=== PATIENT | female | born 1960 | race African-American/Black ===

== ENCOUNTER 2018-03-10 12:16 | Emergency (ER) | payer OTHER ==
[~2018-03-10] VITALS: Ht 167.6 cm; Wt 87.5 kg
[2018-03-10 12:16] VITALS: BP 128/85
[~2018-03-10 12:16] MED LIST: DEXL60CA3 PO; GABA800T2 PO; LAMO100T2 PO; PRAV40TA3 PO; SPIR25TA PO; SUCR1TAB31 PO; TOPI25TA PO
[2018-03-10] MEDS ORDERED: KETOROLAC TROMETHAMINE INJ 30 MG/ML VIAL ONE (13:28)
[2018-03-10] MEDS: KETOROLAC TROMETHAMINE INJ 30 MG/ML VIAL IM ONE (13:30)
== END 2018-03-10 15:11 | disposition home or self-care (01) ==
LOC: ER 13:13
DX: M51.36 Other intervertebral disc degeneration, lumbar region (principal); M75.32 Calcific tendinitis of left shoulder; G57.01 Lesion of sciatic nerve, right lower limb; I10 Essential (primary) hypertension; J44.9 Chronic obstructive pulmonary disease, unspecified; F41.9 Anxiety disorder, unspecified; F31.9 Bipolar disorder, unspecified; F17.200 Nicotine dependence, unspecified, uncomplicated; Z90.49 Acquired absence of other specified parts of digestive tract; Z90.710 Acquired absence of both cervix and uterus
CPT/HCPCS: 72110-TC; 73030-TC; A4606; J1885; Z7610

== ENCOUNTER 2018-05-25 09:59 | Emergency (ER) | payer OTHER ==
[~2018-05-25] VITALS: Ht 167.6 cm; Wt 88.9 kg
[2018-05-25 10:03] VITALS: BP 121/81
== END 2018-05-25 10:16 | disposition home or self-care (01) ==
LOC: ER 10:00
DX: S63.641A Sprain of metacarpophalangeal joint of right thumb, initial encounter (principal); F31.9 Bipolar disorder, unspecified; F41.9 Anxiety disorder, unspecified; J44.9 Chronic obstructive pulmonary disease, unspecified; Z90.89 Acquired absence of other organs; Z90.710 Acquired absence of both cervix and uterus; I10 Essential (primary) hypertension; F17.200 Nicotine dependence, unspecified, uncomplicated; X58.XXXA Exposure to other specified factors, initial encounter; Y93.89 Activity, other specified; Y92.89 Other specified places as the place of occurrence of the external cause; Y99.8 Other external cause status
CPT/HCPCS: A4606; Z7610

== ENCOUNTER 2018-06-22 08:15 | Emergency (ER) | payer OTHER ==
[~2018-06-22] VITALS: Ht 167.6 cm; Wt 88.9 kg
[2018-06-22 08:26] VITALS: BP 117/74
[2018-06-22] MEDS ORDERED: TRAMADOL HCL 50 MG TABLET ONE (08:58)
[2018-06-22] MEDS ORDERED: TRAMADOL HCL 50 MG TABLET PO ONE (09:00)
== END 2018-06-22 09:34 | disposition home or self-care (01) ==
LOC: ER 08:16
DX: M79.644 Pain in right finger(s) (principal); I10 Essential (primary) hypertension; J44.9 Chronic obstructive pulmonary disease, unspecified; M19.90 Unspecified osteoarthritis, unspecified site; F17.200 Nicotine dependence, unspecified, uncomplicated; Z90.49 Acquired absence of other specified parts of digestive tract; Z79.899 Other long term (current) drug therapy
CPT/HCPCS: 73120-TC; A4606; Z7610

== ENCOUNTER 2019-01-20 12:04 | Emergency (ER) | payer OTHER ==
[~2019-01-20] VITALS: Ht 167.6 cm; Wt 84.8 kg
[2019-01-20 12:04] VITALS: BP 114/74
[~2019-01-20 12:04] MED LIST changes: +GABA800T11 PO; -GABA800T2 PO
== END 2019-01-20 12:46 | disposition home or self-care (01) ==
LOC: ER 12:08
DX: H93.92 Unspecified disorder of left ear (principal); I10 Essential (primary) hypertension; E78.00 Pure hypercholesterolemia, unspecified; J44.9 Chronic obstructive pulmonary disease, unspecified; M19.90 Unspecified osteoarthritis, unspecified site; F17.200 Nicotine dependence, unspecified, uncomplicated; Z98.890 Other specified postprocedural states; Z79.899 Other long term (current) drug therapy
CPT/HCPCS: 99283; A4606

== ENCOUNTER 2019-09-01 09:39 | Emergency (ER) | payer OTHER ==
[~2019-09-01] VITALS: Ht 167.6 cm; Wt 81.6 kg
[2019-09-01 10:15] VITALS: BP 170/90
[2019-09-01] MEDS ORDERED: IBUPROFEN 600 MG TABLET PO ONE ×2 (10:30→11:07)
[2019-09-01 10:53] LABS: BASOPHILS # (AUTO) 0.2 /CMM (0.0-0.2); BASOPHILS % (AUTO) 2.3 % (0.0-2.0); HEMATOCRIT 47 % (33-45); HEMOGLOBIN 15.7 g/dL (11.5-14.8); LYMPHOCYTES # (AUTO) 3.1 /CMM (0.8-4.8); LYMPHOCYTES % (AUTO) 32.6 % (20.0-44.0); MEAN CORPUSCULAR HGB CONC 34 g/dl (31.0-36.0); MEAN CORPUSCULAR VOLUME 98 fL (82-100); MONOCYTES # (AUTO) 0.5 /CMM (0.1-1.30); MONOCYTES % (AUTO) 5.7 % (2.0-12.0); NEUTROPHILS # (AUTO) 5.5 /CMM (1.8-8.9); NEUTROPHILS % (AUTO) 58.4 % (43.0-81.0); PLATELET COUNT (AUTO) 192 /CMM (150-450); RED BLOOD CELL COUNT(AUTO) 4.77 MIL/uL (4.0-5.2); WHITE BLOOD COUNT (AUTO) 9.4 K/uL (4.3-11.0)
[2019-09-01 11:00] LABS: CALCIUM, SERUM 9.1 mg/dL (8.5-10.1); CREATININE 0.8 mg/dL (0.6-1.3); POTASSIUM 4.2 mmol/L (3.5-5.1)
== END 2019-09-01 11:41 | disposition home or self-care (01) ==
LOC: ER 09:39
DX: J06.9 Acute upper respiratory infection, unspecified (principal); J44.9 Chronic obstructive pulmonary disease, unspecified; I10 Essential (primary) hypertension; F17.200 Nicotine dependence, unspecified, uncomplicated; Z98.890 Other specified postprocedural states; Z79.899 Other long term (current) drug therapy
CPT/HCPCS: 36415; 71046; 80048-TC; 85025-TC

== ENCOUNTER 2019-11-28 13:36 | Emergency (ER) | payer OTHER ==
[~2019-11-28] VITALS: Ht 167.6 cm; Wt 82.6 kg
[2019-11-28] MEDS ORDERED: HYDROCODONE/APAP 10/325MG 1 EA TABLET ONE (14:25)
[2019-11-28] MEDS ORDERED: HYDROCODONE/APAP 10/325MG 1 EA TABLET PO ONE (14:30)
--- NOTE | 2019-11-28 14:30 | NUR ---
PATIENT CAME IN TO THE ER C/O PAIN TO R HAND S/P INJURY 3 YEARS AGO. NO RELIEF FROM OTC MEDICATION. ON ROOM AIR, BREATHING EVENLY AND UNLABORED. KEPT COMFORTABLE, WILL CONTINUE TO MONITOR ACCORDINGLY.
--- NOTE | 2019-11-28 15:47 | NUR ---
CALLED [facility], REQUESTED RE-READ
[2019-11-28 15:58] VITALS: BP 135/81
--- NOTE | 2019-11-28 15:58 | NUR ---
Patient discharged to home in stable condition. Written and verbal after care instructions given. Patient verbalizes understanding of instruction.
== END 2019-11-28 15:58 | disposition home or self-care (01) ==
LOC: ER 13:54
DX: M79.641 Pain in right hand (principal); I10 Essential (primary) hypertension; J44.9 Chronic obstructive pulmonary disease, unspecified; M19.90 Unspecified osteoarthritis, unspecified site; F17.200 Nicotine dependence, unspecified, uncomplicated; Z98.890 Other specified postprocedural states; Z79.899 Other long term (current) drug therapy
CPT/HCPCS: 73130-TC

== ENCOUNTER 2020-04-14 18:56 | Emergency (ER) | payer OTHER ==
[~2020-04-14] VITALS: Ht 167.6 cm; Wt 81.6 kg
[2020-04-14 19:30] VITALS: BP 127/67
[2020-04-14] MEDS ORDERED: KETOROLAC TROMETHAMINE INJ 30 MG/ML VIAL ONE (20:02)
[2020-04-14] MEDS: KETOROLAC TROMETHAMINE INJ 60 MG/2 ML VIAL IM ONE (20:07)
[2020-04-14 20:30] LABS: APPEARANCE,URINE Clear (CLEAR); BILIRUBIN,URINE Negative (NEGATIVE); BLOOD, URINE Trace-intact Ery/uL (NEGATIVE); COLOR,URINE Yellow (YELLOW); KETONES,URINE Trace (NEGATIVE); LEUKOCYTE ESTERASE ,URINE Negative (NEGATIVE); NITRITE, URINE Negative (NEGATIVE); PH,URINE 5.5 (5.0-8.0); PROTEIN,URINE Negative (NEGATIVE); UGLUCOSE Negative (NEGATIVE); UROBILINOGEN,URINE 0.2 EU/dL (0.2)
[2020-04-14 20:48] LABS: SQUAMOUS EPITHELIAL CELL,UR Many /HPF (None Seen)
[2020-04-14 20:49] LABS: BACTERIA,URINE Few /HPF (None Seen); WBC,URINE 0-2 /HPF (0-3)
== END 2020-04-14 21:18 | disposition home or self-care (01) ==
LOC: ER 18:58
DX: R10.9 Unspecified abdominal pain (principal); G89.29 Other chronic pain; M54.5 Low back pain; I10 Essential (primary) hypertension; J44.9 Chronic obstructive pulmonary disease, unspecified; Z98.890 Other specified postprocedural states; Z79.899 Other long term (current) drug therapy
CPT/HCPCS: 72100; 81001; 96372; 99284; J1885; 81000-TC

== ENCOUNTER 2020-06-07 10:21 | Emergency (ER) | payer OTHER ==
[~2020-06-07] VITALS: Ht 167.6 cm; Wt 81.6 kg
[2020-06-07 10:28] VITALS: BP 140/77
--- NOTE | 2020-06-07 11:09 | NUR ---
Patient discharged to home in stable condition. Written and verbal after care instructions given. Patient verbalizes understanding of instruction.
== END 2020-06-07 11:08 | disposition home or self-care (01) ==
LOC: ER 10:21
DX: M54.5 Low back pain (principal); I10 Essential (primary) hypertension; E78.5 Hyperlipidemia, unspecified; J44.9 Chronic obstructive pulmonary disease, unspecified; M19.90 Unspecified osteoarthritis, unspecified site; F17.200 Nicotine dependence, unspecified, uncomplicated; Z98.890 Other specified postprocedural states; Z79.899 Other long term (current) drug therapy

== ENCOUNTER 2020-12-07 08:38 | Emergency (ER) | payer OTHER ==
[~2020-12-07] VITALS: Ht 167.6 cm; Wt 81.6 kg
[2020-12-07 08:47] VITALS: BP 158/89
== END 2020-12-07 09:20 | disposition home or self-care (01) ==
LOC: ER 08:39
DX: G56.01 Carpal tunnel syndrome, right upper limb (principal); I10 Essential (primary) hypertension; E78.5 Hyperlipidemia, unspecified; J44.9 Chronic obstructive pulmonary disease, unspecified; Z98.890 Other specified postprocedural states; Z79.899 Other long term (current) drug therapy

== ENCOUNTER 2021-03-26 11:41 | Emergency (ER) | payer OTHER ==
[~2021-03-26] VITALS: Ht 167.6 cm; Wt 81.6 kg
--- NOTE | 2021-03-26 11:54 | NUR ---
BIBS FROM HOME TO ER BED 12. AAOZ4. NOT IN RESP DISTRESS. AMBULATORY. CAME IN FOR L ARM TINGLING AND L LEG CRAMPING FOR THE PAST 5 DAYS. PT DENIES ANY TRAUMA. ROM ARE ALL INTACT. WAST AT THE BEDSIDE FOR EVAL. ORDERS RECEIVED.
[2021-03-26 12:20] LABS: BASOPHILS # (AUTO) 0.1 /CMM (0.0-0.2); BASOPHILS % (AUTO) 0.6 % (0.0-2.0); EOSINOPHILS % (AUTO) 0.8 % (0.0-6.0); HEMATOCRIT 48 % (33-45); LYMPHOCYTES # (AUTO) 3.9 /CMM (0.8-4.8); LYMPHOCYTES % (AUTO) 34.8 % (20.0-44.0); MEAN CORPUSCULAR HGB CONC 33 g/dl (31.0-36.0); MEAN CORPUSCULAR VOLUME 96 fL (82-100); MONOCYTES # (AUTO) 0.7 /CMM (0.1-1.30); MONOCYTES % (AUTO) 6.6 % (2.0-12.0); NEUTROPHILS # (AUTO) 6.4 /CMM (1.8-8.9); NEUTROPHILS % (AUTO) 57.2 % (43.0-81.0); PLATELET COUNT (AUTO) 211 /CMM (150-450); RED BLOOD CELL COUNT(AUTO) 4.98 MIL/uL (4.0-5.2); WHITE BLOOD COUNT (AUTO) 11.2 K/uL (4.3-11.0)
--- NOTE | 2021-03-26 12:23 | NUR ---
pt to ct
[2021-03-26 12:26] LABS: CREATININE 0.8 mg/dL (0.6-1.3); POTASSIUM 4.1 mmol/L (3.5-5.1)
[2021-03-26 12:31] LABS: CALCIUM, SERUM 9.3 mg/dL (8.5-10.1)
[2021-03-26] MEDS ORDERED: MAGN400T8 PO (13:15)
[2021-03-26] MEDS ORDERED: METH-647 GT (13:15)
[2021-03-26 13:31] VITALS: BP 123/78
--- NOTE | 2021-03-26 13:31 | NUR ---
Patient discharged to home in stable condition. Written and verbal after care instructions given. Patient verbalizes understanding of instruction. Pt ambulatory with a steady gait
== END 2021-03-26 13:33 | disposition home or self-care (01) ==
LOC: ER 11:44
DX: R25.2 Cramp and spasm (principal); E83.42 Hypomagnesemia; M54.12 Radiculopathy, cervical region; I10 Essential (primary) hypertension; E78.5 Hyperlipidemia, unspecified; J44.9 Chronic obstructive pulmonary disease, unspecified; M19.90 Unspecified osteoarthritis, unspecified site; F17.200 Nicotine dependence, unspecified, uncomplicated; Z98.890 Other specified postprocedural states; Z79.899 Other long term (current) drug therapy
CPT/HCPCS: 36415; 72125-TC; 80048-TC; 83735-TC; 85025-TC

== ENCOUNTER 2021-05-01 17:25 | Emergency (ER) | payer OTHER ==
[~2021-05-01] VITALS: Ht 167.6 cm; Wt 81.6 kg
[~2021-05-01 17:25] MED LIST changes: +MAGN400T8 PO; +METH-647 GT
[2021-05-01] MEDS ORDERED: ONDANSETRON HCL/PF 4 MG/2 ML VIAL ONE (17:46)
[2021-05-01] MEDS ORDERED: MORPHINE SULFATE INJ 4 MG/ML DISP.SYRIN ONE (17:46)
[2021-05-01] MEDS ORDERED: METF-440 PO (17:48)
[2021-05-01] MEDS ORDERED: CETI10TA14 PO (17:48)
[2021-05-01] MEDS ORDERED: VENL75CA62 PO (17:48)
[2021-05-01 17:51] LABS: BILIRUBIN,URINE Negative (NEGATIVE); COLOR,URINE YELLOW (YELLOW); LEUKOCYTE ESTERASE ,URINE Negative (NEGATIVE); NITRITE, URINE Negative (NEGATIVE); PH,URINE 5.5 (5.0-8.0); PROTEIN,URINE Negative (NEGATIVE); UGLUCOSE Negative (NEGATIVE); UROBILINOGEN,URINE 0.2 EU/dL (0.2)
[2021-05-01 17:55] LABS: BASOPHILS # (AUTO) 0.1 K/uL (0.0-0.2); BASOPHILS % (AUTO) 0.8 % (0.0-2.0); EOSINOPHILS % (AUTO) 0.5 % (0.0-6.0); HEMATOCRIT 49 % (33-45); HEMOGLOBIN 16.2 g/dL (11.5-14.8); LYMPHOCYTES # (AUTO) 2.6 K/uL (0.8-4.8); LYMPHOCYTES % (AUTO) 16.6 % (20.0-44.0); MEAN CORPUSCULAR HGB CONC 33 g/dl (31.0-36.0); MEAN CORPUSCULAR VOLUME 97 fL (82-100); MONOCYTES # (AUTO) 0.7 K/uL (0.1-1.30); MONOCYTES % (AUTO) 4.2 % (2.0-12.0); NEUTROPHILS # (AUTO) 12.1 K/uL (1.8-8.9); NEUTROPHILS % (AUTO) 77.9 % (43.0-81.0); PLATELET COUNT (AUTO) 212 K/uL (150-450); RED BLOOD CELL COUNT(AUTO) 5.09 MIL/uL (4.0-5.2); WHITE BLOOD COUNT (AUTO) 15.6 K/uL (4.3-11.0)
--- NOTE | 2021-05-01 17:59 | NUR ---
LOWER ABDOMINAL PAIN, NAUSEA X 2 HOURS S/P EATING AT [facility]. PT AAOX4, VSS. RR EVEN & UNLABORED. DENIES CP, SOB, DIZZINESS, DIARRHEA AT THIS TIME. PT SEEN & EVAL'D BY ESA ROBLES. MEDICATED ORDERED, PT PIERRE WELL. WILL CONT TO MONITOR.
[2021-05-01] MEDS ORDERED: ONDANSETRON HCL/PF 4 MG/2 ML VIAL IVP ONE (18:00)
[2021-05-01] MEDS ORDERED: IV NS 0.9% 1,000 ML BAG IV ONE (18:00)
[2021-05-01] MEDS ORDERED: MORPHINE SULFATE INJ 2 MG/ML DISP.SYRIN IV ONE (18:00)
[2021-05-01 18:01] LABS: BACTERIA,URINE Few /HPF (None Seen); SQUAMOUS EPITHELIAL CELL,UR Moderate /HPF (None Seen); WBC,URINE 0-2 /HPF (0-3)
[2021-05-01 18:05] LABS: CALCIUM, SERUM 9.5 mg/dL (8.5-10.1); CREATININE 0.9 mg/dL (0.6-1.3); POTASSIUM 4.1 mmol/L (3.5-5.1)
[2021-05-01 18:11] LABS: ALBUMIN 4.3 g/dL (3.4-5.0); BILIRUBIN,DIRECT 0.1 mg/dL (0.0-0.2); BILIRUBIN,TOTAL 0.1 mg/dL (0.2-1.0); TOTAL PROTEIN, SERUM 7.9 g/dL (6.4-8.2)
--- NOTE | 2021-05-01 18:35 | NUR ---
PT TO CT VIA [facility].
[2021-05-01] MEDS ORDERED: ACET-2605 PO (20:04)
[2021-05-01] MEDS ORDERED: ONDA4TAB5 PO (20:04)
[2021-05-01 20:15] VITALS: BP 130/75
--- NOTE | 2021-05-01 20:15 | NUR ---
Patient discharged to home in stable condition. Rx and Written and verbal after care instructions given. Patient verbalizes understanding of instruction.
== END 2021-05-01 20:16 | disposition home or self-care (01) ==
LOC: ER 17:28
DX: R10.31 Right lower quadrant pain (principal); R10.32 Left lower quadrant pain; R31.9 Hematuria, unspecified; E86.0 Dehydration; I10 Essential (primary) hypertension; E78.5 Hyperlipidemia, unspecified; J44.9 Chronic obstructive pulmonary disease, unspecified; M19.90 Unspecified osteoarthritis, unspecified site; F17.200 Nicotine dependence, unspecified, uncomplicated; Z98.890 Other specified postprocedural states; Z79.899 Other long term (current) drug therapy; Z90.49 Acquired absence of other specified parts of digestive tract
CPT/HCPCS: 36415; 74176; 80048; 80076; 81001; 85025; 96361; 96374; 96375; 99284; J2270; J2405; J7030

== ENCOUNTER 2021-09-29 07:20 | Emergency (ER) | payer OTHER ==
[~2021-09-29] VITALS: Ht 167.6 cm; Wt 81.6 kg
[~2021-09-29 07:20] MED LIST changes: +ACET-2605 PO; +CETI10TA14 PO; -DEXL60CA3 PO; -GABA800T11 PO; +METF-440 PO; -METH-647 GT; +ONDA4TAB5 PO; -SUCR1TAB31 PO; -TOPI25TA PO; +VENL75CA62 PO
--- NOTE | 2021-09-29 07:20 | NUR ---
BIBS C/O NECK PAIN. PPT STATED THAT SHE HAS HAD REOCCURING NECK PAIN FOR MONTHS AND HAS SURGERY A MOTH AGO FOR NERVE PAIN. PT STATED HER NECK PAIN INCREASED LAST NIGHT 7/10 ON PS. PT IS A&OX4 AND STABLE. PT VITALS ARE WITHIN NORMAL LIMITS. PT BREATHING IS REGULAR AND UNLABORED. PT WAS SENT TO BED 1 AND ATTACHED TO MONITOR.
--- NOTE | 2021-09-29 07:32 | NUR ---
DR JOSE AT BEDSIDE
--- NOTE | 2021-09-29 07:43 | NUR ---
PT TAKEN TO CT
[2021-09-29] MEDS ORDERED: HYDROCODONE/APAP 10/325MG TABLET ONE (07:59)
[2021-09-29] MEDS ORDERED: HYDROCODONE/APAP 10/325MG TABLET PO ONE (08:00)
--- NOTE | 2021-09-29 09:29 | NUR ---
LAB AT BEDSIDE
[2021-09-29 09:38] LABS: BASOPHILS # (AUTO) 0.1 K/uL (0.0-0.2); BASOPHILS % (AUTO) 0.7 % (0.0-2.0); EOSINOPHILS % (AUTO) 0.9 % (0.0-6.0); HEMATOCRIT 42 % (33-45); HEMOGLOBIN 14.2 g/dL (11.5-14.8); LYMPHOCYTES # (AUTO) 2.5 K/uL (0.8-4.8); LYMPHOCYTES % (AUTO) 26.1 % (20.0-44.0); MEAN CORPUSCULAR HGB CONC 34 g/dl (31.0-36.0); MEAN CORPUSCULAR VOLUME 96 fL (82-100); MONOCYTES # (AUTO) 0.8 K/uL (0.1-1.30); MONOCYTES % (AUTO) 7.9 % (2.0-12.0); NEUTROPHILS # (AUTO) 6.2 K/uL (1.8-8.9); NEUTROPHILS % (AUTO) 64.4 % (43.0-81.0); PLATELET COUNT (AUTO) 242 K/uL (150-450); RED BLOOD CELL COUNT(AUTO) 4.41 MIL/uL (4.0-5.2); WHITE BLOOD COUNT (AUTO) 9.6 K/uL (4.3-11.0)
[2021-09-29] MEDS ORDERED: HYDR-3972 PO (10:08)
--- NOTE | 2021-09-29 10:17 | NUR ---
Patient discharged to home in stable condition. Written and verbal after care instructions given. Patient verbalizes understanding of instruction. Patient was advised to follow up with her surgeon on Friday.
[2021-09-29 10:18] VITALS: BP 109/83
== END 2021-09-29 10:19 | disposition home or self-care (01) ==
LOC: ER 07:26
DX: G89.29 Other chronic pain (principal); M54.2 Cervicalgia; G89.18 Other acute postprocedural pain; L76.34 Postprocedural seroma of skin and subcutaneous tissue following other procedure; I10 Essential (primary) hypertension; E78.5 Hyperlipidemia, unspecified; J44.9 Chronic obstructive pulmonary disease, unspecified; M19.90 Unspecified osteoarthritis, unspecified site; F17.200 Nicotine dependence, unspecified, uncomplicated; Z98.890 Other specified postprocedural states; Z79.899 Other long term (current) drug therapy; Z79.84 Long term (current) use of oral hypoglycemic drugs
CPT/HCPCS: 36415; 72125-TC; 85025-TC

== ENCOUNTER 2021-11-26 14:26 | Emergency (ER) | payer OTHER ==
[~2021-11-26] VITALS: Ht 167.6 cm; Wt 81.6 kg
[~2021-11-26 14:26] MED LIST changes: +HYDR-3972 PO
[2021-11-26 14:40] VITALS: BP 182/107
[2021-11-26] MEDS ORDERED: AMOX500C2 PO (14:55)
[2021-11-26] MEDS ORDERED: GUAI-671 PO (14:55)
--- NOTE | 2021-11-26 15:08 | NUR ---
RAPID STREP SWAB DONE. SENT TO LAB.
== END 2021-11-26 15:09 | disposition home or self-care (01) ==
LOC: ER 14:29
DX: J02.0 Streptococcal pharyngitis (principal); I10 Essential (primary) hypertension; E78.5 Hyperlipidemia, unspecified; J44.9 Chronic obstructive pulmonary disease, unspecified; M19.90 Unspecified osteoarthritis, unspecified site; F17.200 Nicotine dependence, unspecified, uncomplicated; Z79.899 Other long term (current) drug therapy
CPT/HCPCS: 86403-TC; 87070-TC

== ENCOUNTER 2021-11-27 17:38 | Emergency (ER) | payer OTHER ==
[~2021-11-27 17:38] MED LIST changes: +AMOX500C2 PO; +GUAI-671 PO
--- NOTE | 2021-11-27 17:53 | NUR ---
CALLED IN ED WAITING ROOM. NO RESPONSE.
--- NOTE | 2021-11-27 18:07 | NUR ---
CALLED IN ED WAITING ROOM. NO RESPONSE. LEFT WITHOUT BEING TRIAGED.
== END 2021-11-27 18:10 | disposition left against medical advice (07) ==
LOC: ER 17:38
DX: Z53.21 Procedure and treatment not carried out due to patient leaving prior to being seen by health care provider (principal)

== ENCOUNTER 2022-03-11 09:13 | Emergency (ER) | payer OTHER ==
[~2022-03-11] VITALS: Ht 167.6 cm; Wt 75.7 kg
[2022-03-11 09:19] VITALS: BP 127/70
--- NOTE | 2022-03-11 09:20 | NUR ---
AT BEDSIDE FOR EVAL.
--- NOTE | 2022-03-11 09:31 | NUR ---
X RAY AT BEDSIDE
--- NOTE | 2022-03-11 10:03 | NUR ---
CALLED RADIOLOGY TO FOLLOW UP XRAY RESULT
--- NOTE | 2022-03-11 10:31 | NUR ---
Patient discharged to home in stable condition. Written and verbal after care instructions given. Patient verbalizes understanding of instruction.
== END 2022-03-11 10:32 | disposition home or self-care (01) ==
LOC: OBS 09:14
DX: R07.89 Other chest pain (principal); I10 Essential (primary) hypertension; E78.5 Hyperlipidemia, unspecified; J44.9 Chronic obstructive pulmonary disease, unspecified; M19.90 Unspecified osteoarthritis, unspecified site; F17.200 Nicotine dependence, unspecified, uncomplicated; Z87.09 Personal history of other diseases of the respiratory system; Z90.49 Acquired absence of other specified parts of digestive tract; Z79.899 Other long term (current) drug therapy
CPT/HCPCS: 71045-TC

== ENCOUNTER 2022-04-11 08:57 | Emergency (ER) | payer OTHER ==
[~2022-04-11] VITALS: Ht 167.6 cm; Wt 77.1 kg
[2022-04-11 09:08] VITALS: BP 141/94
[2022-04-11] MEDS ORDERED: GABA300C PO (09:57)
--- NOTE | 2022-04-11 10:04 | NUR ---
Patient discharged to home in stable condition. Written and verbal after care instructions given. Patient verbalizes understanding of instruction.
== END 2022-04-11 10:18 | disposition home or self-care (01) ==
LOC: ER 08:59
DX: G50.0 Trigeminal neuralgia (principal); F17.210 Nicotine dependence, cigarettes, uncomplicated; I10 Essential (primary) hypertension; E78.5 Hyperlipidemia, unspecified; J44.9 Chronic obstructive pulmonary disease, unspecified; M19.90 Unspecified osteoarthritis, unspecified site; Z98.890 Other specified postprocedural states; Z79.899 Other long term (current) drug therapy
CPT/HCPCS: 70486-TC

== ENCOUNTER 2022-04-13 18:05 | Emergency (ER) | payer OTHER ==
[~2022-04-13] VITALS: Ht 167.6 cm; Wt 77.1 kg
[~2022-04-13 18:05] MED LIST changes: +GABA300C PO
[2022-04-13 19:17] LABS: ALANINE AMINOTRANSFERASE 25 U/L (12-78); ALKALINE PHOSPHATASE 87 U/L (46-116); ASPARTATE AMINOTRANSFERASE 11 U/L (15-37); BILIRUBIN,DIRECT 0.1 mg/dL (0.0-0.2); BILIRUBIN,TOTAL 0.2 mg/dL (0.2-1.0); CARBON DIOXIDE 28 mmol/L (21-32); CHLORIDE 104 mmol/L (98-107); CREATININE 0.9 mg/dL (0.6-1.3); GLUCOSE 168 mg/dL (74-106); POTASSIUM 3.4 mmol/L (3.5-5.1); SODIUM SERUM 141 mmol/L (136-145); TOTAL PROTEIN, SERUM 7.5 g/dL (6.4-8.2); UREA NITROGEN, BLOOD 14 mg/dL (7-18)
--- NOTE | 2022-04-13 19:38 | NUR ---
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 STATES SHE ATE [place] THAT WAS SITTING IN THE SUN PRIOR TO SYMPTOMS AND BELIEVES IT MAY HAVE LED TO HER SYMPTOMS. PT AWAKE AND ALERT X4 BREATHING EVEN AND UNLABORED. ALL V/S WNL.
--- NOTE | 2022-04-13 19:43 | NUR ---
FOLLOWED UP WITH LAB REGARDING PENDING CBC. WAS TOLD IT SHOULD BE RELEASED SHORTLY.
[2022-04-13 20:11] LABS: BASOPHILS % (AUTO) 0.3 % (0.0-2.0); EOSINOPHILS % (AUTO) 0.6 % (0.0-6.0); HEMATOCRIT 43 % (33-45); HEMOGLOBIN 14.7 g/dL (11.5-14.8); LYMPHOCYTES # (AUTO) 3.3 K/uL (0.8-4.8); MEAN CORPUSCULAR HGB CONC 34 g/dl (31.0-36.0); MEAN CORPUSCULAR VOLUME 95 fL (82-100); MONOCYTES # (AUTO) 0.7 K/uL (0.1-1.30); MONOCYTES % (AUTO) 6.1 % (2.0-12.0); PLATELET COUNT (AUTO) 206 K/uL (150-450); RED BLOOD CELL COUNT(AUTO) 4.56 MIL/uL (4.0-5.2); WHITE BLOOD COUNT (AUTO) 11.1 K/uL (4.3-11.0)
--- NOTE | 2022-04-13 20:15 | NUR ---
Pt signed out AMA, angio DCed from Lt forearm, and IV site dressed. Pt placed on wc and wheeled out to [facility] .
--- NOTE | 2022-04-13 20:29 | NUR ---
Patient does not wish to proceed with medical care recommended by Dr. Vazquez. Patient given information related to possible complications, up to and including , which could occur as a result of leaving the hospital at this time. Patient verbalizes understanding of risks involved due to leaving against medical advice. Patient has signed AMA form. IV removed. Catheter intact and site benign. Pressure and 4x4 applied to site. No bleeding noted.
[2022-04-13 20:40] VITALS: BP 144/79
== END 2022-04-13 20:44 | disposition left against medical advice (07) ==
LOC: ER 18:09
DX: R07.89 Other chest pain (principal); I10 Essential (primary) hypertension; E78.5 Hyperlipidemia, unspecified; J44.9 Chronic obstructive pulmonary disease, unspecified; M19.90 Unspecified osteoarthritis, unspecified site; F17.200 Nicotine dependence, unspecified, uncomplicated; Z90.49 Acquired absence of other specified parts of digestive tract; Z79.899 Other long term (current) drug therapy
CPT/HCPCS: 36415; 71045-TC; 80048-TC; 80076-TC; 84484-TC; 85025-TC

== ENCOUNTER 2022-11-16 10:13 | Emergency (ER) | payer OTHER ==
[~2022-11-16] VITALS: Ht 167.6 cm; Wt 73.5 kg
--- NOTE | 2022-11-16 11:00 | NUR ---
BIBS C/O FLU SX OF COUGH/COLDS AND BODY ACHES X 3 DAYS. AMBULATORY, PLACED IN BED, BREATHING EVEN AND UNLABORED SATURATING AT 97%RA.
--- NOTE | 2022-11-16 11:10 | NUR ---
SWAB FOR COVID19 AND RAPID INFLUENZA SENT TO LAB
--- NOTE | 2022-11-16 14:00 | NUR ---
Patient discharged to home in stable condition. Written and verbal after care instructions given. Patient verbalizes understanding of instruction.
[2022-11-16 14:01] VITALS: BP 115/85
== END 2022-11-16 14:00 | disposition home or self-care (01) ==
LOC: ER 10:22
DX: B34.9 Viral infection, unspecified (principal); Z20.822 Contact with and (suspected) exposure to COVID-19; J44.9 Chronic obstructive pulmonary disease, unspecified; Z79.899 Other long term (current) drug therapy; E78.5 Hyperlipidemia, unspecified; I10 Essential (primary) hypertension; F17.200 Nicotine dependence, unspecified, uncomplicated
CPT/HCPCS: 99284; 71045; 87426; 87804; C9803

== ENCOUNTER 2024-01-12 12:21 | Emergency (ER) | payer OTHER ==
[~2024-01-12] VITALS: Ht 167.6 cm; Wt 88.0 kg
[~2024-01-12 12:21] MED LIST changes: +CYCL10TA9 PO
[2024-01-12 12:55] VITALS: BP 174/91; TEMP 98.1; O2SAT 97
== END 2024-01-12 12:56 | disposition home or self-care (01) ==
LOC: ER 12:22
DX: J06.9 Acute upper respiratory infection, unspecified (principal); I10 Essential (primary) hypertension; E78.5 Hyperlipidemia, unspecified; J44.9 Chronic obstructive pulmonary disease, unspecified; F17.200 Nicotine dependence, unspecified, uncomplicated; Z98.890 Other specified postprocedural states; Z79.899 Other long term (current) drug therapy

== ENCOUNTER 2024-12-24 22:14 | Emergency (ER) | payer OTHER ==
[~2024-12-24] VITALS: Ht 167.6 cm; Wt 85.3 kg
[2024-12-24] MEDS: IV NS 0.9% 1,000 ML BAG IV ONE (23:30)
[2024-12-24] MEDS ORDERED: ONDANSETRON HCL/PF 4 MG/2 ML VIAL ONE (23:35)
[2024-12-24] MEDS ORDERED: MORPHINE SULFATE INJ 4 MG/ML DISP.SYRIN ONE (23:36)
[2024-12-24] MEDS: ONDANSETRON HCL/PF 4 MG/2 ML VIAL IVP ONE (23:45)
[2024-12-24] MEDS: MORPHINE SULFATE INJ 2 MG/ML DISP.SYRIN IV ONE (23:45)
[2024-12-24 23:48] LABS: BASOPHILS # (AUTO) 0.1 K/uL (0.0-0.2); BASOPHILS % (AUTO) 0.6 % (0.0-2.0); EOSINOPHILS % (AUTO) 0.1 % (0.0-6.0); HEMATOCRIT 47 % (33-45); HEMOGLOBIN 15.7 g/dL (11.5-14.8); LYMPHOCYTES # (AUTO) 2.7 K/uL (0.8-4.8); LYMPHOCYTES % (AUTO) 29.7 % (20.0-44.0); MEAN CORPUSCULAR HEMOGLOBIN 32 PG (26.0-33.0); MEAN CORPUSCULAR HGB CONC 34 g/dl (31.0-36.0); MEAN CORPUSCULAR VOLUME 94 fL (82-100); MONOCYTES # (AUTO) 0.8 K/uL (0.1-1.30); MONOCYTES % (AUTO) 9.1 % (2.0-12.0); NEUTROPHILS # (AUTO) 5.4 K/uL (1.8-8.9); NEUTROPHILS % (AUTO) 60.5 % (43.0-81.0); PLATELET COUNT (AUTO) 215 K/uL (150-450); RED BLOOD CELL COUNT(AUTO) 4.94 MIL/uL (4.0-5.2)
[2024-12-25 00:01] LABS: CALCIUM, SERUM 8.6 mg/dL (8.5-10.1); CREATININE 0.7 mg/dL (0.6-1.3); INR 0.97 (0.91-1.10); PARTIAL THROMBOPLASTIN TIME 24.2 SEC (24.3-34.3); POTASSIUM 3.9 mmol/L (3.5-5.1); PROTHROMBIN TIME 10.3 SECS (9.2-11.1)
[2024-12-25 00:06] LABS: ALBUMIN 3.5 g/dL (3.4-5.0); BILIRUBIN,DIRECT 0.1 mg/dL (0.0-0.2); BILIRUBIN,TOTAL 0.2 mg/dL (0.2-1.0); TOTAL PROTEIN, SERUM 7.2 g/dL (6.4-8.2)
[2024-12-25 00:49] LABS: APPEARANCE,URINE CLEAR (CLEAR); BILIRUBIN,URINE NEGATIVE (NEGATIVE); BLOOD, URINE NEGATIVE Ery/uL (NEGATIVE); COLOR,URINE YELLOW (YELLOW); KETONES,URINE NEGATIVE (NEGATIVE); LEUKOCYTE ESTERASE ,URINE NEGATIVE (NEGATIVE); NITRITE, URINE NEGATIVE (NEGATIVE); PROTEIN,URINE NEGATIVE (NEGATIVE); UGLUCOSE NEGATIVE (NEGATIVE); UROBILINOGEN,URINE 0.2 EU/dL (0.2)
[2024-12-25] MEDS ORDERED: POLY17PO4 PO (01:05)
[2024-12-25] MEDS ORDERED: DOCU-141 PO (01:05)
[2024-12-25 01:11] VITALS: BP 129/89; TEMP 98; O2SAT 97
== END 2024-12-25 01:13 | disposition home or self-care (01) ==
LOC: ER 22:18
DX: K59.00 Constipation, unspecified (principal); E78.5 Hyperlipidemia, unspecified; F17.210 Nicotine dependence, cigarettes, uncomplicated; I10 Essential (primary) hypertension; J44.89 Other specified chronic obstructive pulmonary disease; M19.90 Unspecified osteoarthritis, unspecified site; Z79.84 Long term (current) use of oral hypoglycemic drugs; Z79.899 Other long term (current) drug therapy; Z90.49 Acquired absence of other specified parts of digestive tract
CPT/HCPCS: 99285; 74176; 96374; 96361; 96375; 99406; 85025; 80048; 83690; 80076; 36415; 85730; 81003; J2270; J2405